=== PATIENT | male | born 1965 | race Caucasian/White ===

== ENCOUNTER 2017-11-17 08:57 | Emergency (ER) | payer OTHER ==
[2017-11-17 09:00] VITALS: BP 153/101
--- NOTE | 2017-11-17 09:10 | EDPHY ---
H & P Stated Complaint: Graceton in L hand Time Seen by Provider: 11/17/17 09:10 - Personal History Current Tetanus Diphtheria and Acellular Pertussis (TDAP): Yes - Medical/Surgical History Other PMH: cholesterol - Social History Smoking Status: Never smoked Constitutional: Initial Vital Signs Temperature (C) 36.7 C 11/17/17 08:58 Heart Rate 80 11/17/17 08:58 Respiratory Rate 18 11/17/17 08:58 Blood Pressure 153/101 H 11/17/17 08:58 O2 Sat (%) 96 11/17/17 08:58 O2 Delivery Mode Room Air Allergies/Adverse Reactions: Penicillins Allergy (Intermediate, Verified 11/17/17 09:00) Hives Home Medications: Medication Instructions Recorded Atorvastatin Calcium [Lipitor 40 40 mg PO 11/17/17 mg (*)] Medical Decision Making ED Course/Re-evaluation: CHIEF COMPLAINT: Graceton left hand HISTORY OF PRESENT ILLNESS: The patient is a 52 y/o male complaining of isolated injury to his left hand this morning. He accidentally stuck a treble fishhook in his left index finger while fishing this morning. He has pain at the site, but no other complaints. No blood thinners. He is normally healthy. REVIEW OF SYSTEMS: A comprehensive 10 system review of systems is otherwise negative aside from elements mentioned in the history of present illness and medical decision making. PHYSICAL EXAM: HR, BP, O2 Sat, RR. Temp noted General Appearance: Alert, well hydrated, appropriate, and non-toxic appearing. Head: Atraumatic without scalp tenderness or obvious injury Eyes: Pupils equal, round, reactive to light and accommodation, EOMI, no trauma , no injection. Neck: Supple. Respiratory: No distress. Cardiovascular: Good capillary refill all extremities. Musculoskeletal: Normal active ROM of all extremities, atraumatic. Treble fishhook in dorsum of proximal phalanx of index finger. Neurological: Alert, appropriate, and interactive. Nonfocal. Skin: No rashes, good turgor, no nodules on palpation. Past medical history: Hypercholesterolemia Past surgical history: Noncontributory Family history: Noncontributory Social history: Employed. DIAGNOSTICS/PROCEDURES/CRITICAL CARE TIME: Procedure: Foreign body removal Verbal consent was obtained from the patient. The treble fishhook on the dorsal aspect of the proximal phalanx of the left index finger was anesthetized using lidocaine. The fish hook was removed with pliers without complication. The patient tolerated the procedure well. The wound was cleaned with standard ED protocol. There were no deep structures involved. No tendon injury was identified. The procedure was performed by myself, Dr. Vuong. DIFFERENTIAL DIAGNOSIS: The differential diagnosis for the patient's injury included but was not limited to puncture wound, abrasion, laceration, fracture, ligamentous injury, contusion, muscular strain. MEDICAL DECISION MAKING: This is a healthy 52 y/o male who presents with a treble fishhook imbedded in his left index finger. Area was anesthetized with lidocaine and hook was removed without incident. Wound cleaned and dressed. He will be discharged with standard care and follow up instructions. He is comfortable with plan. Departure - Departure Disposition: Home, Routine, Self-Care Clinical Impression: Graceton injury to finger Qualifiers: Encounter type: initial encounter Laterality: left Qualified Code(s): S69.92XA - Unspecified injury of left wrist, hand and finger(s), initial encounter Condition: Good Instructions: Puncture Wound (ED) Additional Instructions: 1. Keep site clean and dry. 2. Apply thin layer of Bacitracin to wound over the next few days. 3. Follow up with your primary care provider or return to the ED for severe pain , dramatic increase in redness or swelling at the site, fever, or other worsening of condition. Referrals: LORAINE CLAROS [Other] - As per Instructions Report Scribed for: dEdy Vuong Report Scribed by: Leena Solis Date of Report: 11/17/17 Time of Report: 09:11
== END 2017-11-17 09:24 | disposition home or self-care (01) ==
DX: S60.451A Superficial foreign body of left index finger, initial encounter (principal); W45.8XXA Other foreign body or object entering through skin, initial encounter